=== PATIENT | male | born 1990 | race Caucasian/White ===

== ENCOUNTER 2016-08-08 20:51 | Emergency (ER) | payer MEDICAID ==
[~2016-08-08] VITALS: Ht 172.7 cm; Wt 64.0 kg
[2016-08-08 20:58] VITALS: Ht 172.7 cm; Wt 64.0 kg
[2016-08-08] MEDS ORDERED: DIPHTH/TET/ACEL PERTUSS (ADULT) 0.5 ML VIAL IM* ONE (22:00)
[2016-08-08] MEDS ORDERED: IBUPROFEN 600 MG TAB PO ONE (22:00)
--- NOTE | 2016-08-08 22:40 | RADRPT ---
PROCEDURE: XR Tibia and Fibula. CLINICAL INDICATION: Laceration to the right leg. TECHNIQUE: AP and lateral views of the right tibia and fibula were obtained. COMPARISON: No prior studies are available for comparison. FINDINGS: There is normal mineralization and alignment. No fracture or osseous lesion is identified. The joint s are unremarkable. Laceration at the superior and medial aspect of the left leg, with reference mar ker. There is no evident retained radiopaque foreign material in the region of the soft tissue lace ration. Otherwise, there are normal soft tissues without evidence of soft tissue swelling. IMPRESSION: No evident retained radiopaque foreign material in region of right leg laceration. RPTAT: [facility] Physician Lennox Date Time Electronically viewed and signed by Physician Lennox on 08/08/2016 22:40 RS/
[2016-08-09] MEDS ORDERED: CEPH-443 PO (00:33)
[2016-08-09] MEDS ORDERED: IBUP-1542 PO (00:34)
--- NOTE | 2016-08-09 00:43 | ERD ---
ER Documentation Chief Complaint Date/Time DATE: 08/09/16 TIME: 00:35 Chief Complaint Puncture wound in the left leg. HPI Patient is a 26-year-old male who presents to the emergency department with a wound to his left leg. Patient states he was outside cutting down a tree when a rock got stuck in his machine and hit him in the leg. Patient reports a wound to his left lower leg. Patient states that this injury occurred around 3 PM today. Patient reports immediate bleeding however the bleeding has now stopped. Patient does not recall his last tetanus vaccination. Patient reports surrounding ecchymosis to the wound site. Patient denies any fevers, chills, nausea, vomiting, shortness of breath, chest pain, head trauma or loss of consciousness. ROS All systems reviewed and are negative except as per history of present illness. Medications Home Meds Active Scripts Ibuprofen* (Motrin*) 600 Mg Tab, 600 MG PO Q6, #30 TAB Prov:ALDO FRANKS PA-C 08/09/16 Cephalexin* (Keflex*) 500 Mg Capsule, 500 MG PO QID for 7 Days, CAP Prov:ALDO FRANKS PA-C 08/09/16 Allergies Allergies: Coded Allergies: No Known Allergy (Unverified , 08/08/16) PMhx/Soc Medical and Surgical Hx: pt denies Medical Hx, pt denies Surgical Hx Hx Alcohol Use: No Hx Substance Use: No Hx Tobacco Use: No Smoking Status: Never smoker Physical Exam Vitals Vital Signs Date Time Temp Pulse Resp B/P Pulse Ox O2 Delivery O2 Flow Rate FiO2 08/09/16 00:49 98.9 94 20 125/73 100 Room Air 08/08/16 20:58 99.1 127 20 130/76 100 Physical Exam GENERAL: Well-developed, well-nourished male. Appears in no acute distress. HEAD: Normocephalic, atraumatic. EYES: Pupils are equally reactive bilaterally. EOMs grossly intact. No conjunctival erythema. ENT: Moist mucous membranes. No uvula deviation. No kissing tonsils. NECK: Supple. No meningismus. Normal range of motion of the neck. LUNG: Clear to auscultation bilaterally. No rhonchi, wheezing, rales or coarse breath sounds. HEART: Regular rate and rhythm. No murmurs, rubs or gallops. ABDOMEN: No scars, ecchymosis or rashes noted. Soft, nontender, and nondistended. Positive bowel sounds in all four quadrants. No rebound tenderness , no guarding. (-) McBurney's point tenderness. No CVA tenderness. BACK: No midline tenderness. EXTREMITIES: Equal pulses bilaterally. No peripheral clubbing, cyanosis or edema. No unilateral leg swelling. NEUROLOGIC: Alert and oriented. Moving all four extremities without any difficulty. Normal speech. Steady gait. SKIN: Normal color. Warm and dry. 2 cm jagged laceration noted to the lateral aspect of the patient's left lower leg. Surrounding ecchymosis and swelling noted. LEFT LEG: No obvious deformity. Ecchymosis and swelling noted to the patient's lateral aspect of his lower leg. Range of motion of the knee, ankle, toes. No valgus/varus instability. Sensation intact to light touch. Neurovascularly intact. (Able to plantarflex, dorsiflex, wilbert foot, invert foot, raise big toe. ) 2+ DP and DT pulses. Results 24 hrs Current Medications Medications (Trade) Dose Ordered Sig/Yehuda Route PRN Reason Start Time Stop Time Status Last Admin Dose Admin Diphtheria/ Tetanus/Acell Pertussis (Adacel) 0.5 ml ONCE ONCE IM* 08/08/16 22:00 08/08/16 22:01 DC 08/08/16 21:45 Ibuprofen (Motrin) 600 mg ONCE ONCE PO 08/08/16 22:00 08/08/16 22:01 DC 08/08/16 21:42 Procedures/MDM ED COURSE: The patient was stable throughout ED course. I kept the patient and/or family informed of laboratory and diagnostic imaging results throughout the ED course. DIAGNOSTIC IMAGING: Read by radiologist. Patient: CONNER SHANE : 1990 Age: 26 Sex: M MR #: [id number] DOS: 08/08/16 2135 Ordering MD: ALDO FRANKS PA-C Location: [facility] Room/Bed: PROCEDURE: XR Tibia and Fibula. CLINICAL INDICATION: Laceration to the right leg. TECHNIQUE: AP and lateral views of the right tibia and fibula were obtained. COMPARISON: No prior studies are available for comparison. FINDINGS: There is normal mineralization and alignment. No fracture or osseous lesion is identified. The joints are unremarkable. Laceration at the superior and medial aspect of the left leg, with reference marker. There is no evident retained radiopaque foreign material in the region of the soft tissue laceration. Otherwise, there are normal soft tissues without evidence of soft tissue swelling. IMPRESSION: No evident retained radiopaque foreign material in region of right leg laceration. RPTAT: [facility] Physician Lennox Date Time Electronically viewed and signed by Physician Lennox on 08/08/2016 22:40 RS/ CC: ALDO FRANKS PA-C PROCEDURES: Laceration Repair: The patient was verbally consented prior to procedure. Patient was explained the risks, benefits and alternatives to this procedure. Length: 2 cm, jagged, irregular borders Irrigation: Thorough irrigation was performed with normal saline and adequate pressure. Inspection: The wound was thoroughly explored and no foreign bodies, deep tissue , tendon or structural injuries were noted. Anesthesia: 5 cc Repair: The area was prepared and draped in the usual sterile manner with the wound exposed. 3 Prolene 3-0 sutures were placed with good wound closure and wound approximation. Bleeding was minimal. The patient tolerated the procedure well with no complications. The wound was dressed with bacitracin and sterile gauze. The patient was neurovascularly intact post-procedure. Post-procedural wound care was discussed with the patient. MEDICATIONS GIVEN: Ibuprofen Patient tolerated medication well with no adverse reactions. Patient reported improvement in pain. MEDICAL DECISION MAKING: This is a 26-year-old male who presents with a laceration to his left lower leg after getting hit by a rock that was stuck in a machine while cutting down a tree. Patient states that injury occurred at approximately 3 PM today. Patient does not recall his last tetanus vaccination. Vital signs were reviewed. Patient was afebrile. X-ray imaging showed no evident retained radiopaque foreign material in region of right leg laceration. Patient underwent a laceration repair. The wound was cleansed thoroughly and closed using 3 Prolene 3-0 sutures. The patient had good wound closure and wound approximation. Patient tolerated wound closure without any complications. Patient was given his tetanus vaccination here in the emergency department. At this time, the patient's presentation is most consistent with leg laceration and leg contusion. Low suspicion for tendon injury, retained foreign body, fracture or dislocation. PRESCRIPTIONS: Keflex, ibuprofen DISCHARGE: At this time, the patient is stable for discharge and outpatient management. Post-procedural wound care was discussed with the patient. The patient has been advised to return to the ER in 2 days for a wound check and then again in 7 days for suture removal. I have instructed the patient to promptly return to the ER for any new or worsening symptoms including increasing pain, fever, warmth, redness or swelling. The patient and/or family expressed understanding of and agreement with this plan. All questions were answered. Home care instructions were provided. Departure Diagnosis: Primary Impression: Laceration Additional Impression: Puncture wound Condition: Stable Patient Instructions: Laceration, All Referrals: [facility] YOU HAVE RECEIVED A MEDICAL SCREENING EXAM AND THE RESULTS INDICATE THAT YOU DO NOT HAVE A CONDITION THAT REQUIRES URGENT TREATMENT IN THE EMERGENCY DEPARTMENT. FURTHER EVALUATION AND TREATMENT OF YOUR CONDITION CAN WAIT UNTIL YOU ARE SEEN IN YOUR DOCTORS OFFICE WITHIN THE NEXT 1-2 DAYS. IT IS YOUR RESPONSIBILITY TO MAKE AN APPOINTMENT FOR FOLOW-UP CARE. IF YOU HAVE A PRIMARY DOCTOR --you should call your primary doctor and schedule an appointment IF YOU DO NOT HAVE A PRIMARY DOCTOR YOU CAN CALL OUR PHYSICIAN REFERRAL HOTLINE AT IF YOU CAN NOT AFFORD TO SEE A PHYSICIAN YOU CAN CHOSE FROM THE FOLLOWING [facility] [address] [facility]. [facility] [address] [facility] [address] [facility] [address] [facility]. [facility] [address] [facility]. [facility]. [address] [facility]. [facility] YOU HAVE RECEIVED A MEDICAL SCREENING EXAM AND THE RESULTS INDICATE THAT YOU DO NOT HAVE A CONDITION THAT REQUIRES URGENT TREATMENT IN THE EMERGENCY DEPARTMENT. FURTHER EVALUATION AND TREATMENT OF YOUR CONDITION CAN WAIT UNTIL YOU ARE SEEN IN YOUR DOCTORS OFFICE WITHIN THE NEXT 1-2 DAYS. IT IS YOUR RESPONSIBILITY TO MAKE AN APPOINTMENT FOR FOLOW-UP CARE. IF YOU HAVE A PRIMARY DOCTOR --you should call your primary doctor and schedule and appointment IF YOU DO NOT HAVE A PRIMARY DOCTOR YOU CAN CALL OUR PHYSICIAN REFERRAL HOTLINE AT . IF YOU CAN NOT AFFORD TO SEE A PHYSICIAN YOU CAN CHOSE FROM THE FOLLOWING [facility] INSTITUTIONS: [facility] [address] [place] [address] [facility] [address] [place] [address] [facility] [address] [place] [address] Additional Instructions: Patient is advised to return to the ER in 2 days for wound recheck. Return sooner for any new or worsening symptoms including swelling, redness, pain, fever, chills, nausea, vomiting. Call your primary care doctor TOMORROW for an appointment during the next 1-2 days.See the doctor sooner or return here if your condition worsens before your appointment time. ALDO FRANKS PA-C Aug 09, 2016 00:42
[2016-08-09 00:49] VITALS: BP 125/73; PULSE 94; RESP 20; TEMP 98.9
== END 2016-08-09 00:49 | disposition home or self-care (01) ==
LOC: FTE 20:51
DX: S81.812A Laceration without foreign body, left lower leg, initial encounter (principal); W22.8XXA Striking against or struck by other objects, initial encounter; Y92.9 Unspecified place or not applicable; Z23 Encounter for immunization
CPT/HCPCS: 12001; 73590; 90471; 90715; Z7502; Z7610

== ENCOUNTER 2016-08-18 10:22 | Emergency (ER) | payer MEDICAID ==
[~2016-08-18] VITALS: Ht 162.6 cm; Wt 65.0 kg
[~2016-08-18 10:22] MED LIST: CEPH-443 PO; IBUP-1542 PO
[2016-08-18 10:30] VITALS: Ht 162.6 cm; Wt 65.0 kg
--- NOTE | 2016-08-18 11:27 | ERD ---
ER Documentation Chief Complaint Date/Time DATE: 08/18/16 TIME: 11:26 Chief Complaint SUTURE REMOVAL LEFT MANN AREA HPI This 26-year-old male presents requesting suture removal on his left mann. He has been 10 days. He has no fevers, redness and feels his wound is healing well. ROS All systems reviewed and are negative except as per history of present illness. Medications Home Meds Active Scripts Ibuprofen* (Motrin*) 600 Mg Tab, 600 MG PO Q6, #30 TAB Prov:ALDO FRANKS PA-C 08/09/16 Cephalexin* (Keflex*) 500 Mg Capsule, 500 MG PO QID for 7 Days, CAP Prov:ALDO FRANKS PA-C 08/09/16 Allergies Allergies: Coded Allergies: No Known Allergy (Unverified , 08/08/16) PMhx/Soc Hx Alcohol Use: No Hx Substance Use: No Hx Tobacco Use: No Physical Exam Vitals Vital Signs Date Time Temp Pulse Resp B/P Pulse Ox O2 Delivery O2 Flow Rate FiO2 08/18/16 10:30 98.0 71 20 132/75 100 Physical Exam Const: [] Alert, [id number] Head: Atraumatic Eyes: Normal Conjunctiva ENT: Normal External Ears, Nose and Mouth. Neck: Full range of motion..~ No meningismus. Resp: Clear to auscultation bilaterally Cardio: Regular rate and rhythm, no murmurs Abd: Soft, non tender, non distended. Normal bowel sounds Skin: No petechiae or rashes. On the left mann there is a healing laceration with 3 sutures. There is no erythema, discharge, deformities, restricted range of motion, weakness Back: No midline or flank tenderness Ext: No cyanosis, or edema Neur: Awake and alert Psych: Normal Mood and Affect Procedures/MDM Sutures were removed without complications. Patient has a satisfactory left mann wound and will be discharged home with instructions to return for fevers, redness, new or worsening symptoms with primary care doctor. Departure Diagnosis: Primary Impression: Encounter for removal of sutures Condition: Stable Patient Instructions: Suture Removal, No Complication OSCAR VALDEZ MD Aug 18, 2016 11:27
== END 2016-08-18 11:39 | disposition home or self-care (01) ==
LOC: FTE 10:22
DX: Z48.02 Encounter for removal of sutures (principal)
CPT/HCPCS: 99281